=== PATIENT | male | born 1965 | race Caucasian/White ===

== ENCOUNTER 2023-01-03 21:15 | Emergency (ER) | payer BC ==
[~2023-01-03] VITALS: Ht 170.2 cm; Wt 88.5 kg
--- NOTE | 2023-01-03 22:32 | NUR ---
PT AMB TO BED 11
[2023-01-03 22:49] VITALS: BP 178/108
--- NOTE | 2023-01-03 23:01 | NUR ---
PT COMPLAINING OF FLU-LIKE SYMPTOMS X5 DAYS ADMITS TO SICK CONTACT SYMPTOMS INCLUDE: COUGH, NAUSEA, CONGESTION, SUBJECTIVE FEVERS DENIES VOMITING AND DIARRHEA HAS BEEN TAKING OTC FLU/COLD MEDICATION BUT FEELS LIKE SYMPTOMS WORSENING NAD NOTED AT THIS TIME. PT SPEAKING IN FULL CLEAR SENTENCES. RESP EQUAL UNLABORED. CONGESTED COUGH NOTED. PT AOX4. SKIN WDL. HX HTN NOT ON ANY HTN MEDICATIONS
--- NOTE | 2023-01-03 23:55 | NUR ---
PA VICKI WITH PT
[2023-01-04] MEDS ORDERED: ALBU0.0912 IH (00:15)
[2023-01-04] MEDS ORDERED: IBUP-2213 PO (00:15)
[2023-01-04] MEDS ORDERED: ROBAC PO (00:15)
--- NOTE | 2023-01-04 00:47 | NUR ---
Patient discharged with v/s stable. Written and verbal after care instructions given and explained. Patient verbalized understanding. Ambulatory with steady gait. All questions addressed prior to discharge. Advised to follow up with PMD. Patient discharged with v/s stable. Written and verbal after care instructions given and explained. Patient alert, oriented and verbalized understanding of instructions. Ambulatory with steady gait. All questions addressed prior to discharge. ID band removed. Patient advised to follow up with PMD. Rx given. Patient educated on indication of medication including possible reaction and side effects. Opportunity to ask questions provided and answered.
[2023-01-04 00:48] VITALS: BP 178/108
== END 2023-01-04 00:47 | disposition home or self-care (01) ==
LOC: MED 21:15
DX: J06.9 Acute upper respiratory infection, unspecified (principal); I10 Essential (primary) hypertension
CPT/HCPCS: 71045; 99283; Q0092